=== PATIENT | female | born 1935 | race Caucasian/White ===

== ENCOUNTER 2016-08-13 06:15 | Day surgery (SDC) | payer OTHER ==
[~2016-08-13] VITALS: Ht 148.6 cm; Wt 65.5 kg
[~2016-08-13 06:15] MED LIST: FentaNYL CITRATE-PF 100 MCG/2 ML VIAL IVP ONE; MIDAZOLAM HCL 2 MG/2 ML VIAL IVP ONE
[2016-08-13] MEDS ORDERED: RINGERS SOLUTION,LACTATED 500 ML IV ONE ×3 (06:38→07:00)
[2016-08-13] MEDS ORDERED: TROPICAMIDE 1% 2 ML OPHTHALMIC SOLUTION ONE (06:40)
[2016-08-13] MEDS ORDERED: FLURBIPROFEN SODIUM 0.03% 2.5 ML OPHTHALMIC SOLUTION ONE (06:40)
[2016-08-13] MEDS ORDERED: PHENYLEPHRINE HCL 2.5% 2 ML OPHTHALMIC SOLUTION ONE (06:41)
[2016-08-13] MEDS ORDERED: CYCLOPENTOLATE HCL 1% 2 ML OPHTHALMIC SOLUTION ONE (06:41)
[2016-08-13] MEDS ORDERED: FURO20 PO (06:59)
[2016-08-13] MEDS ORDERED: OMEP20 PO (06:59)
[2016-08-13] MEDS ORDERED: AMLO-511 PO (06:59)
[2016-08-13] MEDS ORDERED: METF500T4 PO (06:59)
[2016-08-13] MEDS ORDERED: METO50 PO (06:59)
[2016-08-13] MEDS ORDERED: PRAV20TA4 PO (06:59)
[2016-08-13] MEDS ORDERED: ACET-66 PO (06:59)
[2016-08-13] MEDS ORDERED: LOSA50TA37 PO (06:59)
[2016-08-13] MEDS ORDERED: GLIM2 PO (06:59)
[2016-08-13] MEDS: TROPICAMIDE 1% 2 ML OPHTHALMIC SOLUTION OS SCH ×3 (07:16→07:26)
[2016-08-13] MEDS: FLURBIPROFEN SODIUM 0.03% 2.5 ML OPHTHALMIC SOLUTION OS SCH ×3 (07:16→07:27)
[2016-08-13] MEDS: CYCLOPENTOLATE HCL 1% 2 ML OPHTHALMIC SOLUTION OS SCH ×3 (07:16→07:27)
[2016-08-13] MEDS: PHENYLEPHRINE HCL 2.5% 2 ML OPHTHALMIC SOLUTION OS SCH ×3 (07:17→07:27)
[2016-08-13 07:47] LABS: GLUCOSE COMMENT 1 Doctor Notified; GLUCOSE,POINT OF CARE 179 MG/DL (70-110)
[2016-08-13] MEDS ORDERED: HYALURONATE SOD/CHONDROITIN SOD 0.5 ML VIAL IO ONE (10:00)
[2016-08-13] MEDS ORDERED: HYALURONATE SODIUM 12 MG/ML 0.8 ML SYRINGE IO ONE (10:00)
[2016-08-13] MEDS ORDERED: ACETYLCHOLINE CHLORIDE 1 EA INTRAOCULAR SOLUTION KIT IO ONE (10:00)
[2016-08-13] MEDS ORDERED: LIDOCAINE HCL/PF 1% 2 ML VIAL IM ONE (10:00)
[2016-08-13] MEDS ORDERED: EPINEPHrine 1:1,000 [1 MG/ML] AMP IM ONE (10:00)
[2016-08-13] MEDS ORDERED: POVIDONE-IODINE 10% 15 ML SOLUTION UD TP ONE (10:00)
[2016-08-13] MEDS ORDERED: TETRACAINE HCL VISCOUS 0.5% 0.6 ML OPHTHALMIC SOLUTION OU ONE (10:00)
[2016-08-13] MEDS ORDERED: NEOMYCIN/POLYMYXIN B/DEXAMETH 3.5 GM OPHTHALMIC OINTMENT OU ONE (10:00)
== END 2016-08-13 10:25 | disposition home or self-care (01) ==
LOC: SURGERY 06:15
PROVIDERS: ATTEND Ophthalmology
DX: E11.36 Type 2 diabetes mellitus with diabetic cataract (principal); H25.812 Combined forms of age-related cataract, left eye; I10 Essential (primary) hypertension; E78.00 Pure hypercholesterolemia, unspecified
CPT/HCPCS: 66984; 82962; 93005; C1780; J0171; J0690; J1030; J2250; J3010; J3490 ×2; J7120